=== PATIENT | male | born 1940 | race Caucasian/White ===

== ENCOUNTER 2019-10-02 12:07 | Emergency (ER) | payer MEDICARE, OTHER ==
[~2019-10-02] VITALS: Ht 165.1 cm; Wt 71.8 kg
[2019-10-02 12:13] VITALS: BP 147/67
[2019-10-02] MEDS ORDERED: LIDOcaine 1% W/epiNEPHrine 1:200,000 10ml vial IJ ONE (12:25)
[2019-10-02] MEDS: nitroGLYCERIN 1gm ointment UD TP ONE ×2 (13:32→13:55)
[2019-10-02] MEDS ORDERED: CEPH-572 PO (14:42)
[2019-10-02] MEDS ORDERED: HYDR-3965 PO (14:46)
== END 2019-10-02 14:56 | disposition home or self-care (01) ==
LOC: ER 12:08
DX: S68.021A Partial traumatic metacarpophalangeal amputation of right thumb, initial encounter (principal); Z79.899 Other long term (current) drug therapy; X58.XXXA Exposure to other specified factors, initial encounter; Y93.89 Activity, other specified; Y92.89 Other specified places as the place of occurrence of the external cause; Y99.8 Other external cause status
CPT/HCPCS: 12002; 73140; 99283